=== PATIENT | male | born 1985 | race Caucasian/White ===

== ENCOUNTER 2017-09-14 22:05 | Emergency (ER) | payer OTHER, SELFPAY ==
[2017-09-14 22:11] VITALS: BP 157/93; PULSE 109; RESP 20; TEMP 37.2; O2SAT 99; BMI 29.8
--- NOTE | 2017-09-14 23:01 | HMH.EDWNDL ---
ED Disposition Clinical Impression: Laceration Disposition: Home, Self-Care Condition on Discharge: Good Instructions: DI for Laceration Repair Additional Instructions: suture out 7-8 days and recheck if any problems - Critical Care Critical Care Time: No Attestation: On 09/14/17, the high probability of a clinically significant, sudden or life threatening deterioration of the following system(s) required my full and direct attention, intervention and personal management. The time I documented below is in addition to time spent performing reported procedures but includes the following listed in this critical care notation. Medical Decision Making - Medical Records Medical records reviewed: Yes: I reviewed the patient's medical records. Vital Signs: 09/14/17 22:11 Temperature 99.0 F Temperature Source Oral Pulse Rate [Right Radial] 109 H Respiratory Rate 20 Blood Pressure [Right Arm] 157/93 Blood Pressure Mean [Right Arm] 114 Blood Pressure Position [Right Arm] Sitting 02 Sat by Pulse Oximetry 99 - Lab Data Lab results reviewed: Yes: I reviewed the patient's lab results. - Power Inquiry Pt receiving controlled substance: No Wound/Laceration HPI - General Chief Complaint: Wound/Laceration Stated Complaint: AO 2030 Lac Above Lip Time Seen by Provider: 09/14/17 23:01 Mode of Arrival: Ambulatory Source of Information: Patient, Medical Record Limitations: No Limitations Description of Symptoms (Recalled from ER Triage Doc. by RN): PT WAS PLAYING HOCKEY AND WAS HIT IN THE FACE WITH A HOCKEY PUCK. PT WITH C/O UPPER LIP LACERATION - History of Present Illness HPI narrative: lac to rt upper lip this pm as noted above Onset (ago): hour(s) Location: face Place: outdoors Patient tetanus UTD: Yes Context: accidental Associated symptoms: pain - Related Data Home Medications Medication Instructions Recorded Confirmed No Known Home Medications [No 09/14/17 09/14/17 Known Home Medications] Allergies Allergy/AdvReac Type Severity Reaction Status Date / Time No Known Allergies Allergy Verified 09/14/17 22:15 [facility] History I have reviewed the patient's past medical history: Yes Medical History: Denies:: Cancer, Diabetes Mellitus Type 1, Diabetes Mellitus Type 2, MRSA Amputation: No Fractures: No - Social History Smoking Status: Former smoker Alcohol Intake: never - Psychiatric History Expresses thoughts of harming self/others: None Suicide Plan Description: No Plan ROS Obtained: Yes All systems reviewed & no additional complaints - Constitutional Constitutional: Denies fever(s) - Eyes Eyes: Denies change in vision - ENT Ears, Nose, Mouth, and Throat: Denies change in voice - Cardiovascular Cardiovascular: Denies chest pain - Respiratory Respiratory: No cough - Musculoskeletal Musculoskeletal: Denies joint pain, Denies joint swelling - Integumentary/Breasts Skin/Breast: Reports as per HPI, Reports other (2 cm facial lac ) - Neurologic Neurologic: Denies seizure-like activity Physical Exam - General General appearance: alert, in no apparent distress - Head Head exam: normocephalic - Eye Eye exam: Present: PERRL, EOMI - ENT ENT exam: Present: mucous membranes moist, other (teeth ok) - Neck Neck exam: Present: trachea midline - Respiratory Respiratory exam: Absent: respiratory distress - Cardiovascular Cardiovascular exam: Present: regular rate - Abdominal Exam Abdominal exam: Present: soft - Extremities Exam Extremities exam: Present: normal inspection - Neurological Exam Neurological exam: Present: alert, oriented X3, CN II-XII intact - Psychiatric Psychiatric exam: Present: normal affect - Skin Skin exam: Present: other (2 cm upper lip lac ). Absent: rash Procedures - Laceration Laceration 1 Site: lip Side (If applicable): right Size (cm): 2 Description: linear, involves ayaka border Depth:
--- NOTE | 2017-09-14 23:04 | ED_ITS ---
ED Disposition Clinical Impression: Laceration Disposition: Home, Self-Care Condition on Discharge: Good Instructions: DI for Laceration Repair Additional Instructions: suture out 7-8 days and recheck if any problems - Critical Care Critical Care Time: No Attestation: On 09/14/17, the high probability of a clinically significant, sudden or life threatening deterioration of the following system(s) required my full and direct attention, intervention and personal management. The time I documented below is in addition to time spent performing reported procedures but includes the following listed in this critical care notation. Medical Decision Making - Medical Records Medical records reviewed: Yes: I reviewed the patient's medical records. Vital Signs: 09/14/17 22:11 Temperature 99.0 F Temperature Source Oral Pulse Rate [Right Radial] 109 H Respiratory Rate 20 Blood Pressure [Right Arm] 157/93 Blood Pressure Mean [Right Arm] 114 Blood Pressure Position [Right Arm] Sitting 02 Sat by Pulse Oximetry 99 - Lab Data Lab results reviewed: Yes: I reviewed the patient's lab results. - Power Inquiry Pt receiving controlled substance: No Wound/Laceration HPI - General Chief Complaint: Wound/Laceration Stated Complaint: AO 2030 Lac Above Lip Time Seen by Provider: 09/14/17 23:01 Mode of Arrival: Ambulatory Source of Information: Patient, Medical Record Limitations: No Limitations Description of Symptoms (Recalled from ER Triage Doc. by RN): PT WAS PLAYING HOCKEY AND WAS HIT IN THE FACE WITH A HOCKEY PUCK. PT WITH C/O UPPER LIP LACERATION - History of Present Illness HPI narrative: lac to rt upper lip this pm as noted above Onset (ago): hour(s) Location: face Place: outdoors Patient tetanus UTD: Yes Context: accidental Associated symptoms: pain - Related Data Home Medications Medication Instructions Recorded Confirmed No Known Home Medications [No 09/14/17 09/14/17 Known Home Medications] Allergies Allergy/AdvReac Type Severity Reaction Status Date / Time No Known Allergies Allergy Verified 09/14/17 22:15 [facility] History I have reviewed the patient's past medical history: Yes Medical History: Denies:: Cancer, Diabetes Mellitus Type 1, Diabetes Mellitus Type 2, MRSA Amputation: No Fractures: No - Social History Smoking Status: Former smoker Alcohol Intake: never - Psychiatric History Expresses thoughts of harming self/others: None Suicide Plan Description: No Plan ROS Obtained: Yes All systems reviewed & no additional complaints - Constitutional Constitutional: Denies fever(s) - Eyes Eyes: Denies change in vision - ENT Ears, Nose, Mouth, and Throat: Denies change in voice - Cardiovascular Cardiovascular: Denies chest pain - Respiratory Respiratory: No cough - Musculoskeletal Musculoskeletal: Denies joint pain, Denies joint swelling - Integumentary/Breasts Skin/Breast: Reports as per HPI, Reports other (2 cm facial lac ) - Neurologic Neurologic: Denies seizure-like activity Physical Exam - General General appearance: alert, in no apparent distress - Head Head exam: normocephalic - Eye Eye exam: Present: PERRL, EOMI - ENT ENT exam: Present: mucous membranes marie
[2017-09-14 23:09] VITALS: BP 148/70; PULSE 78; RESP 20; TEMP 36.6; O2SAT 99
== END 2017-09-14 23:13 | disposition home or self-care (01) ==
PROVIDERS: Emergency Provider Emergency Medicine; Family Provider Internal Medicine Adolescent Medicine; PCP Internal Medicine Adolescent Medicine
DX: S01.511A Laceration without foreign body of lip, initial encounter (principal); W22.8XXA Striking against or struck by other objects, initial encounter; Y93.22 Activity, ice hockey; Y92.330 Ice skating rink (indoor) (outdoor) as the place of occurrence of the external cause
CPT/HCPCS: 12011; 96372; 99281; 99282

== ENCOUNTER 2017-09-21 08:56 | Outpatient (CLI) | payer OTHER, SELFPAY | END 2017-09-21 09:41 | disposition home or self-care (01) | LOC: UTC 09:06 → UTC.OUT 10:15 | PROVIDERS: Family Provider Internal Medicine Adolescent Medicine; PCP Internal Medicine Adolescent Medicine; Visit Provider Nurse Practitioner Family | DX: S01.511D Laceration without foreign body of lip, subsequent encounter (principal) ==

== ENCOUNTER → 2020-11-28 12:38 | Outpatient (CLI) | payer OTHER, SELFPAY | PROVIDERS: Visit Provider Urology | DX: Z01.812 Encounter for preprocedural laboratory examination (principal); Z11.52 Encounter for screening for COVID-19; U07.1 COVID-19; Z30.2 Encounter for sterilization | CPT/HCPCS: U0003 ==

== ENCOUNTER 2020-11-30 14:52 | Emergency (ER) | payer OTHER, SELFPAY ==
[2020-11-30 14:55] VITALS: BP 139/91; PULSE 102; RESP 19; TEMP 37.1; O2SAT 98; BMI 33.9
--- NOTE | 2020-11-30 15:12 | HMH.EDUTC ---
[facility] [place] Disposition Clinical Impression: Pre-op testing Disposition: Home, Self-Care Condition on Discharge: Good Referrals: Harjeet Topete MD [Primary Care Provider] - Time of Disposition: 15:13 Medical Decision Making - Power Inquiry Pt receiving controlled substance: No Vital Signs: 11/30/20 14:55 Temperature 98.7 F Temperature Source Oral Pulse Rate [Right Brachial] 102 H Respiratory Rate 19 Blood Pressure [Right Arm] 139/91 H Blood Pressure Mean [Right Arm] 107 Blood Pressure Source [Right Arm] Automatic Cuff Blood Pressure Position [Right Arm] Sitting 02 Sat by Pulse Oximetry 98 Oxygen Delivery Method Room Air Orders (Tests/Meds): ORDERS Category Date Time Status Covid-19 Nasal PCR ([facility]) Routine Lab 11/30/20 14:57 Ordered [facility] [place] HPI - General Stated complaint: covid test Time Seen by Provider: 11/30/20 15:12 Mode of Arrival: Ambulatory Source of Information: Patient Limitations: No Limitations Description of Symptoms (Recalled from Triage Doc. by RN): PATIENT NEEDING NEGTIVE COVID TEST FOR SURGERY HEENT Symptoms (Recalled from RN notes): No Resp Symptoms (Recalled from RN notes): No Skin Symptoms (Recalled from RN notes): No MS Symptoms (Recalled from RN notes): No Functional Status (Recalled from RN notes): WNL - History of Present Illness Provider Complaint: Patient was scheduled for vasectomy today. Preop COVID test on 11/28 was positive. Repeat test yesterday was negative. He has been vaccinated X 2 several months ago. He is asymptomatic. Surgery requested repeat test before rescheduling procedure. Onset (ago): day(s) (2) Relieving factors: none Exacerbating factors: none Associated symptoms: denies other symptoms Treatments prior to arrival: none - Related Data Home Medications Medication Instructions Recorded Confirmed escitalopram oxalate 20 mg tablet 20 mg PO DAILY 11/13/20 11/13/20 Allergies Allergy/AdvReac Type Severity Reaction Status Date / Time No Known Allergies Allergy Verified 11/27/20 08:57 - Worker's Comp Is this a Worker's Comp case?: No [facility] History - Hepatitis A Screen Drug use history?: No High risk sexual behaviors?: No History of sexually transmitted infection?: No Currently employed?: No Childcare worker?: No Do you have indoor plumbing?: Yes Do you have electricity?: Yes Attestation statement:: This patient has been screened for Hepatitis A risk factors. I have reviewed the patient's past medical history: Yes Medical History: Denies:: Cancer, Diabetes Mellitus Type 1, Diabetes Mellitus Type 2, Internal Pacemaker, MRSA Other Surgeries: Yes: No Previous Surgery. No: Pacemaker Amputation: No Fractures: No - Social History Smoking Status: Former smoker Alcohol Intake: current Alcohol Intake Frequency:: a few times a week Substance Use Type: denies use Occupational Status: employed Housing: house Household Members: family Family Hx:: Heart Attack ROS Obtained: Yes All systems reviewed & no additional complaints Physical Exam - General General appearance: alert, in no apparent distress - Head Head exam: normocephalic - Eye Eye exam: Present: PERRL - Chest Chest inspection: Present: normal inspection, symmetric chest wall rise - Respiratory Respiratory exam: Present: normal lung sounds bilaterally - Cardiovascular Cardiovascular exam: Present: regular rate, normal rhythm - Neurological Exam Neurological exam: Present: alert, oriented X3 - Psychiatric Psychiatric exam: Present: normal affect, normal mood - Skin Skin exam: Present: warm, dry, intact
[2020-11-30 15:16] VITALS: BP 139/91; PULSE 102; RESP 19; TEMP 37.1; O2SAT 98
--- NOTE | 2020-11-30 18:47 | PC.NURSE ---
PT NOTIFIED OF POSITIVE COVID TEST RESULTS
== END 2020-11-30 15:20 | disposition home or self-care (01) ==
PROVIDERS: Emergency Provider Physician Assistant; PCP Internal Medicine Adolescent Medicine
DX: U07.1 COVID-19 (principal); Z87.891 Personal history of nicotine dependence
CPT/HCPCS: 99202; G0463; U0003

== ENCOUNTER 2021-01-04 07:59 | Day surgery (SDC) | payer OTHER, SELFPAY ==
[2020-12-31 13:12] VITALS: BMI 33.9
[2021-01-04 08:48] VITALS: BP 159/85; PULSE 100; RESP 18; TEMP 36.7; O2SAT 97
--- NOTE | 2021-01-04 08:50 | HMH.ANESCL ---
[facility] Anesthesia Checklist - Patient Identification Patient Identification: Arm Band - Structural Data Admitted From: Home Planned Operative Procedure/s: Vasectomy Consent for Planned Operative Procedure(s) Verified: Yes - NPO Status Verified Time NPO: 00:00 - Airway Assessment C-Spine Mobility Assessed: Yes TMJ Mobility Assessed: Yes Dentition: Good Dentition - Neurological Assessment Level of Consciousness: Awake Hx Seizures: No Numbness or tingling in extremities: No - Anesthesia Plan Anesthesia Risk discussed: Yes Anesthesia Plan: Verified ASA Class: II Anesthesia Type: General [facility] History I have reviewed the patient's past medical history: Yes Medical History: Denies:: Cancer, Diabetes Mellitus Type 1, Diabetes Mellitus Type 2, Internal Pacemaker, MRSA *Have you ever received a pneumonia vaccine?: No *Have you received a flu vaccine this season?: Yes Anesthesia experience/problems:: None Other Surgeries: Yes: No Previous Surgery. No: Pacemaker Amputation: No Fractures: No - *Social History Last grade of school completed: Some college Smoking Status: Never smoker Smoking End Date: 10 years ago Alcohol Intake: current Alcohol Intake Frequency:: a few times a week Substance Use Type: denies use *Occupational Status:: employed Housing: house Household Members: spouse, children *Travel in the last 8 weeks: None Family Hx:: Heart Attack
[2021-01-04 10:59] VITALS: BP 113/79; PULSE 81; RESP 18; TEMP 36.1; O2SAT 94
[2021-01-04 11:13] VITALS: BP 113/79; PULSE 81; RESP 18; O2SAT 94
--- NOTE | 2021-01-04 11:13 | SUR.PHASEII ---
REVIEWED DISCHARGE INSTRUCTIONS, FOLLOW UP NEEDED WITH DR AXEL FELIPE INSTRUCTION SHEET PROVIDED AND REVIEWED, SPECIMEN CUPS PROVIDED- PT AND SPOUSE VERBALIZED UNDERSTANDING OF ALL INSTRUCTIONS.
--- NOTE | 2021-01-04 12:47 | P.OP_ITS ---
Date of procedure: 01/04/21 Pre-op Diagnosis:: Sterilization Post-op Diagnosis:: Sterilization Procedure performed:: Bilateral vasectomy Surgeon:: Gallo Muñoz MD Anesthesia: local Estimated blood loss (mL): 5 Clinical Note:: 35-year-old white male presents for vasectomy. Scrotal examination was within normal limits preoperatively and the procedure was performed without c omplication. Operative findings:: Testicular examination normal. Operative note:: Patient taken to the vasectomy suite after informed consent was obtained. On the stretcher he was prepped and draped in the standard surgical fashion. Testicular examination was within normal limits. The left vas was palpated and brought up to the midline raphae. Local anesthetic was placed into the midline raphae and around the basal structure. An incision was then made over the midline raphae and a tenaculum was placed through the incision and the vas was grasped and brought up through the incision. The basal sheath was incised and the vas proper was brought up and dissected from its surrounding tissues. 1 clip was placed distally and 2 proximally. A 1 cm segment was excised and the basal lumens were cauterized. Hemostasis achieved of the surrounding structures and the vas was dropped back in the left hemiscrotum. The right vas was then grasped and brought up to the same incision. Local anesthetic was placed around the right vas and the identical procedure was performed as on the left side. The right vas was dropped back into the hemiscrotum and a 3-0 chromic placed in the skin in a vertical mattress fashion. Compression dressing applied. Patient tolerated procedure well no complications. Condition: stable Disposition: same day Specimens:: Vas segments were not sent Complications:: None
== END 2021-01-04 11:15 | disposition home or self-care (01) ==
PROVIDERS: PCP Internal Medicine Adolescent Medicine; Visit Provider Urology
PROC: (CPT 55250; principal; 2021-01-04 08:00)
DX: Z30.2 Encounter for sterilization (principal); Z79.899 Other long term (current) drug therapy
CPT/HCPCS: 55250

== ENCOUNTER → 2023-11-11 08:08 | Outpatient (CLI) | payer OTHER, SELFPAY | LOC: SL 11-12 08:49 | PROVIDERS: PCP Nurse Practitioner Family; Visit Provider Nurse Practitioner Family | DX: G47.33 Obstructive sleep apnea (adult) (pediatric) (principal) | CPT/HCPCS: G0399 ==